=== PATIENT | female | born 1970 | race Caucasian/White ===

== ENCOUNTER → 2019-01-11 | Outpatient (CLI) | payer BC ==
--- NOTE | 2019-01-11 09:55 | RADIOLOGY REPORT (SQ) ---
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 TECHNIQUE: Dynamic and static jarrett scale and color images acquired of both lower extremity venous sy stems. Selected spectral images acquired with additional compression and augmentation maneuvers. Imag es stored on PACS. LIMITATIONS: None. FINDINGS: RIGHT LEG COMMON FEMORAL AND FEMORAL: Normal phasicity, compression and augmentation. No visualized echogenic m aterial on jarrett scale. No defects on color images. POPLITEAL: Normal compression and augmentation. No visualized echogenic material on jarrett scale. No de fects on color images. CALF VESSELS: Thrombus within varicosities. GSV AND SSV: Normal compression. No visualized echogenic material on jarrett scale. No defects on color images. ANY DEEP VENOUS INSUFFICIENCY: Not evaluated. ANY EVIDENCE OF POPLITEAL CYST: No. OTHER: No other significant finding. LEFT LEG COMMON FEMORAL AND FEMORAL: Normal phasicity, compression and augmentation. No visualized echogenic m aterial on jarrett scale. No defects on color images. POPLITEAL: Normal compression and augmentation. No visualized echogenic material on jarrett scale. No de fects on color images. CALF VESSELS: Normal compression and augmentation. No visualized echogenic material on jarrett scale. No defects on color images. GSV AND SSV: Normal compression. No visualized echogenic material on jarrett scale. No defects on color images. ANY DEEP VENOUS INSUFFICIENCY: Not evaluated. ANY EVIDENCE POPLITEAL CYST: No. OTHER: No other significant finding. IMPRESSION: Acute thrombus within varicosities in the right calf. TECHNICAL DOCUMENTATION: JOB ID: [id number] [employer]- All Rights Reserved Reading location - IP/workstation name: [email or web address]
== END ==
LOC: SP 07:31
PROVIDERS: ATTEND Physician Assistant
DX: I83.813 Varicose veins of bilateral lower extremities with pain (principal); I82.4Z1 Acute embolism and thrombosis of unspecified deep veins of right distal lower extremity
CPT/HCPCS: 93970